=== PATIENT | female | born 1955 | race Caucasian/White ===

== ENCOUNTER 2016-12-06 12:55 | Day surgery (SDC) | payer OTHER ==
[~2016-12-06] VITALS: Ht 147.3 cm; Wt 74.8 kg
[2016-12-06] MEDS ORDERED: omeprazole (14:47)
[2016-12-06] MEDS ORDERED: vitamin D (14:47)
[2016-12-06] MEDS ORDERED: pravastatin (14:47)
[2016-12-06] MEDS ORDERED: tums (14:47)
[2016-12-06] MEDS ORDERED: melatonin (14:47)
[2016-12-06] MEDS ORDERED: B-12 (14:47)
[2016-12-06] MEDS ORDERED: Iron (14:47)
[2016-12-06] MEDS ORDERED: zyrtec (14:47)
[2016-12-06] MEDS ORDERED: calcium (14:47)
[2016-12-06] MEDS ORDERED: FENTAnyl 50 MCG/ML VIAL ONE (15:22)
[2016-12-06] MEDS ORDERED: PROPOFOL 20 ML ONE (15:22)
[2016-12-06] MEDS ORDERED: LIDOCAINE 2% (SDV) 5 ML INJ ONE (15:22)
[2016-12-06 15:41] VITALS: BP 137/69; PULSE 62; RESP 13
--- NOTE | 2016-12-07 10:33 | GILP ---
DATE OF PROCEDURE: 12/06/2016 PROCEDURE: Esophagogastroduodenoscopy with biopsies. HISTORY AND INDICATIONS: The patient is being evaluated for dyspepsia. PREMEDICATION: Monitored anesthesia care by anesthesiologist. INSTRUMENT USED: Olympus TECHNIQUE: After informed consent, with the patient/relatives understanding the procedure, its indications, potential risks and complications, including but not limited to: allergic reaction, bleeding, perforation or infection, and after all pertinent questions were answered to the patients satisfaction, the patient/relatives signed witnessed informed consent. Following this, premedication was administered slowly IV push under careful cardiovascular and respiratory monitoring with pulse oximetry, automatic blood pressure and threat monitoring analyst. Once the sedative effect was achieved the patient was place in the left lateral decubitus, the panendoscope was introduced and advanced under visual control. Careful examination of the upper gastrointestinal tract, both on insertion as well as withdrawal of the instrument disclosed the following findings: Esophagus: The distal esophagus shows mild erythema and edema in the mucosa. Stomach: Upon entrance to the stomach air was insufflated, the gastric west distended normally. There is erythema and edema of the mucosa of a moderate degree. Biopsies were obtained to rule out H. pylori infection. Pylorus: The pylorus appears patent and within normal limits, with no evidence of gastric outlet obstruction. Duodenum: The duodenal mucosa was carefully examined in the duodenal bulb as well as the second portion of the duodenum and appears unremarkable with no evidence of duodenitis, ulcer or neoplasm. The instrument was then withdrawn, the patient tolerated the procedure well and was transfer out of the endoscopy suite awake, and in good condition to continue recovery under observation. IMPRESSION: 1. Distal esophagitis. 2. Gastritis, rule out Helicobacter pylori infection, biopsies obtained. RECOMMENDATIONS: The patient will be treated with PPIs. Further recommendations and pathology will be reviewed. Further recommendations will depend on the patient's clinical course as well as review of biopsies. Dictated By: Rosa Maria Adames MD /[email or web address] /Document#: [id number]
--- NOTE | 2016-12-07 10:33 | GILP ---
DATE OF PROCEDURE: 12/06/2016 PROCEDURE: Colonoscopy to cecum. HISTORY AND INDICATIONS: The patient is here for colorectal cancer screening. PREMEDICATION: Monitored anesthesia care by anesthesiologist. INSTRUMENT USED: Olympus colonoscope. PREPARATION: Adequate. TECHNIQUE: After informed consent, with the patient/relatives understanding the procedure, its indications potential risks and complications, including but not limited to: allergic reaction, bleeding, perforation, infection, missed lesions and after all pertinent questions were answered to the patient's satisfaction, the patient/relatives signed the witnessed informed consent. Following this, premedication was administered slowly IV push by under careful cardiovascular and respiratory monitoring with pulse oximetry, automatic blood pressure and environmental analyst. Once the sedative effect was achieved, the patient was placed in the left lateral decubitus position, digital rectal examination was performed. The colonoscope was then introduced and advanced under visual control throughout all segments of the colon including: the rectum, sigmoid, descending colon, splenic flexure, transverse colon, hepatic flexure, ascending colon and finally reaching the cecum which was clearly identified by transillumination, finger indentation and the ileocecal valve. Careful examination of the mucosa of the lower gastrointestinal tract both on insertion as well as withdrawal of the instrument disclosed the following findings: Rectal Examination: No evidence of perirectal disease, no masses. Colonic mucosa: The colonic mucosa is unremarkable throughout. The ileocecal valve was clearly identified and appears unremarkable. Instrument was withdrawn. Re-examined the mucosa in detail. No additional abnormalities are noted with exception of moderate-sized internal hemorrhoids. The instrument was then withdrawn, the patient tolerated the procedure well and was transferred out of the Endoscopy Suite awake and in good condition to continue recovery under observation. IMPRESSION: 1. Normal colonic mucosa to cecum. 2. Moderate-sized internal hemorrhoids. RECOMMENDATIONS: The patient will follow up as an outpatient. Annual hemoccult stool testing is recommended. Screening colonoscopy in 10 years is recommended. Dictated By: Rosa Maria Adames MD /[email or web address] /Document#: [id number]
== END 2016-12-06 17:10 | disposition home or self-care (01) ==
LOC: GIL 12:55
PROVIDERS: ATTEND Internal Medicine Gastroenterology
DX: Z12.11 Encounter for screening for malignant neoplasm of colon (principal); K20.8 Other esophagitis; K29.70 Gastritis, unspecified, without bleeding
CPT/HCPCS: 43239; 45378; 88305; 88312; J3010; Z7610